=== PATIENT | female | born 1950 | race Caucasian/White ===

== ENCOUNTER 2021-08-14 23:16 | Emergency (ER) | payer OTHER ==
[~2021-08-14] VITALS: Ht 152.4 cm; Wt 75.0 kg
[2021-08-14] MEDS ORDERED: acetaminophen 325mg tablet PO ONE (23:25)
--- NOTE | 2021-08-14 23:32 | NUR ---
PT TO CT
[2021-08-15] MEDS ORDERED: sulfamethoxazole/trimethoprim DS (800/160mg) tablet PO ONE (00:15)
[2021-08-15] MEDS ORDERED: ondansetron 4mg rapidly disintigrating tab PO ONE (00:15)
[2021-08-15] MEDS ORDERED: SULF1TAB49 PO (00:26)
[2021-08-15] MEDS ORDERED: bacitracin 15gm ointment TP ONE (01:05)
[2021-08-15 01:31] VITALS: BP 165/83
== END 2021-08-15 01:33 | disposition home or self-care (01) ==
LOC: ER 23:17
DX: S02.2XXB Fracture of nasal bones, initial encounter for open fracture (principal); R94.8 Abnormal results of function studies of other organs and systems; Z79.899 Other long term (current) drug therapy; W01.0XXA Fall on same level from slipping, tripping and stumbling without subsequent striking against object, initial encounter; Y93.89 Activity, other specified; Y92.89 Other specified places as the place of occurrence of the external cause; Y99.8 Other external cause status
CPT/HCPCS: 12011; 70450; 70486; 72125; 99284